=== PATIENT | female | born 1995 | race Caucasian/White ===

== ENCOUNTER 2017-11-20 14:31 | Emergency (ER) | payer BC ==
[2017-11-20 15:12] VITALS: BP 129/58
--- NOTE | 2017-11-20 15:27 | UC ---
Throat Pain/Nasal Shaun HPI - HPI Summary HPI Summary: 22 female presents to urgent care with complaints of sore throat, fever, and not feeling well. States symptoms began about 2 days ago however they worsen this morning upon waking up. He is not taking any medication. Has been taking cough drops to soothe his sore throat. Also admits to some nausea but denies vomiting. No other complaints. No past medical history - History of Current Complaint Chief Complaint: UCRespiratory Stated Complaint: SORE THROAT Time Seen by Provider: 11/20/17 15:13 Hx Obtained From: Patient Hx Last Menstrual Period: 10/28 ?: No Onset/Duration: Sudden Onset, Lasting Days, Still Present, Worse Since Severity: Moderate Pain Intensity: 8 Pain Scale Used: 0-10 Numeric Cough: None Associated Signs & Symptoms: Positive: Dysphagia, Fever - Allergies/Home Medications Allergies/Adverse Reactions: Allergies Allergy/AdvReac Type Severity Reaction Status Date / Time No Known Allergies Allergy Verified 11/20/17 15:03 Home Medications: Home Medications Cough Lozenges 1 tab PO SEE INSTRUCTIONS PRN 11/20/17 [History] PMH/Surg Hx/FS Hx/Imm Hx - Additional Past Medical History Additional PMH: Denies past medical history no diabetes no hypertension - Surgical History Surgical History: Yes Surgery Procedure, Year, and Place: endoscopy - Family History Known Family History: Positive: Other - "cancer" - Social History Alcohol Use: Occasionally Substance Use Type: None Smoking Status (MU): Never Smoked Tobacco Review of Systems Constitutional: Fever, Fatigue ENT: Sore Throat Respiratory: Negative Cardiovascular: Negative Gastrointestinal: Nausea Musculoskeletal: Myalgia Neurological: Headache All Other Systems Reviewed And Are Negative: Yes Physical Exam Triage Information Reviewed: Yes Appearance: No Pain Distress, Well-Nourished, Ill-Appearing Vital Signs: Initial Vital Signs Temp 101.5 F 11/20/17 15:05 Pulse 139 11/20/17 15:05 Resp 20 11/20/17 15:05 BP 129/58 11/20/17 15:05 Pulse Ox 100 11/20/17 15:05 Tachycardia noted. Fever noted Vital Signs Reviewed: Yes Eyes: Positive: Conjunctiva Clear ENT: Positive: Hearing grossly normal, Pharyngeal erythema, TMs normal, Tonsillar swelling, Uvula midline - No sign of peritonsillar abscess. Negative : Tonsillar exudate Dental: Positive: Cervical Lymphadenopathy Neck: Positive: Supple, Nontender Respiratory: Positive: Chest non-tender, Lungs clear, Normal breath sounds, No respiratory distress, No accessory muscle use Cardiovascular: Positive: RRR, No Murmur, Pulses Normal Abdomen Description: Positive: Nontender, Soft Bowel Sounds: Positive: Present Musculoskeletal: Positive: Strength Intact Neurological: Positive: Alert Skin Exam: Normal Throat Pain/Nasal Course/Dx - Course Course Of Treatment: Strep test obtained and positive. Given ibuprofen and Zofran while in urgent care. Will give amoxicillin to take home. Continue ibuprofen/Tylenol for fever and pain. Recommended Chloraseptic spray. Salt water gargles. Rest and fluids. Aware of worsening signs and symptoms to watch out for. - Differential Dx/Diagnosis Differential Diagnosis/HQI/PQRI: Mononucleosis, Pharyngitis, Tonsillitis Provider Diagnoses: strep pharyngitis Discharge - Sign-Out/Discharge Documenting (check all that apply): Discharge - Discharge Plan Condition: Good Disposition: HOME Prescriptions: Amoxicillin PO (*) [Amoxicillin 500 MG CAP*] 500 mg PO Q12H #20 cap Ondansetron ODT TAB* [Zofran 4 MG Odt TAB*] 4 mg PO Q6H PRN #5 tab.odt PRN Reason: Nausea Patient Education Materials: Strep Throat (ED) Referrals: Gris Mendez MD [Primary Care Provider] - Additional Instructions: Take prescribed medication as directed until entire dose is finished. Recommending ibuprofen/Tylenol alternating for pain and fever. Recommend Chloraseptic spray [id number] to see her throat Avoid spicy and hot foods. Increase fluid intake and plan rest. Cover mouth and wash hands, do not share drinks as this is very contagious. Follow-up with PCP in a couple days to ensure improvement. Any new or worsening symptoms please seek medical attention promptly, as discussed. - Billing Disposition and Condition Condition: GOOD Disposition: HOME
[2017-11-20] MEDS ORDERED: Ibuprofen TAB* 600 MG PO ONE (15:32)
[2017-11-20] MEDS ORDERED: Ondansetron ODT TAB* 4 MG PO ONE (15:32)
== END 2017-11-20 15:47 | disposition home or self-care (01) ==
LOC: UCCORT 14:31
DX: J02.0 Streptococcal pharyngitis (principal)
CPT/HCPCS: 87651; 99212; A9270-GY; G0463

== ENCOUNTER 2019-07-17 08:24 | Emergency (ER) | payer BC ==
[2019-07-17 08:42] VITALS: BP 108/72
--- NOTE | 2019-07-17 09:00 | UC ---
Throat Pain/Nasal Shaun HPI - HPI Summary HPI Summary: 24-year-old female who has had a sore throat over the past 2 days. She did have a fever in the beginning but no longer. - History of Current Complaint Chief Complaint: UCGeneralIllness Stated Complaint: sore throat Time Seen by Provider: 07/17/19 08:46 Hx Obtained From: Patient Hx Last Menstrual Period: "The end of April ... " Normally Irregular ?: No Onset/Duration: Gradual Onset Severity: Mild Pain Intensity: 7 Cough: None Associated Signs & Symptoms: Positive: Fever - Allergies/Home Medications Allergies/Adverse Reactions: Allergies Allergy/AdvReac Type Severity Reaction Status Date / Time No Known Allergies Allergy Verified 07/17/19 08:39 Home Medications: Home Medications Acetaminophen [Acetaminophen Extra Strength] 1,000 mg PO Q6H PRN 07/17/19 [ History Confirmed 07/17/19] PMH/Surg Hx/FS Hx/Imm Hx Previously Healthy: Yes - Surgical History Surgical History: Yes Surgery Procedure, Year, and Place: endoscopy - Family History Known Family History: Positive: Other - "cancer" - Social History Occupation: Employed Full-time Alcohol Use: Rare Substance Use Type: None Smoking Status (MU): Never Smoked Tobacco Review of Systems All Other Systems Reviewed And Are Negative: Yes Constitutional: Positive: Fever ENT: Positive: Sore Throat Is Patient Immunocompromised?: No Physical Exam Triage Information Reviewed: Yes Appearance: Well-Appearing, No Pain Distress, Well-Nourished Vital Signs: Initial Vital Signs Temp 98.5 F 07/17/19 08:37 Pulse 100 07/17/19 08:37 Resp 16 07/17/19 08:37 BP 108/72 07/17/19 08:37 Pulse Ox 100 07/17/19 08:37 Vital Signs Reviewed: Yes Eyes: Positive: Conjunctiva Clear ENT: Positive: Pharynx normal, TMs normal, Uvula midline Neck: Positive: Supple, Nontender, No Lymphadenopathy Respiratory: Positive: Lungs clear, Normal breath sounds, No respiratory distress, No accessory muscle use Cardiovascular: Positive: RRR, No Murmur, Pulses Normal, Brisk Capillary Refill Abdomen Description: Positive: Nontender, No Organomegaly, Soft. Negative: CVA Tenderness (R), CVA Tenderness (L), Distended, Guarding, Hepatomegaly, McBurney' s Point Tenderness, Splenomegaly Bowel Sounds: Positive: Present Musculoskeletal Exam: Normal Neurological Exam: Normal Psychological Exam: Normal Skin Exam: Normal Throat Pain/Nasal Course/Dx - Course Course Of Treatment: Rapid strep test negative. Patient is comfortable here. She can do warm salt water gargles, throat lozenges, Tylenol every 4 hours Motrin every 8 hours for pain or fever and follow-up with her primary care provider if no improvement in 4 or 5 days. - Differential Dx/Diagnosis Provider Diagnosis: Pharyngitis Discharge ED - Sign-Out/Discharge Documenting (check all that apply): Patient Departure All imaging exams completed and their final reports reviewed: No Studies - Discharge Plan Condition: Good Disposition: HOME Patient Education Materials: Pharyngitis (ED) Referrals: Gris Mendez MD [Primary Care Provider] - Additional Instructions: Increase fluids, warm saltwater gargles, Tylenol every 4 hours may alternate with Motrin every 8 hours for pain or fever. Follow-up with your primary care provider if no improvement in 3 or 4 days. - Billing Disposition and Condition Condition: GOOD Disposition: Home
== END 2019-07-17 09:06 | disposition home or self-care (01) ==
LOC: UCCORT 08:24
DX: J02.9 Acute pharyngitis, unspecified (principal)
CPT/HCPCS: 87651; 99211; G0463